=== PATIENT | female | born 1990 | race Caucasian/White ===

== ENCOUNTER 2018-02-05 22:45 | Inpatient (IN) | payer OTHER ==
[~2018-02-05] VITALS: Ht 160 cm; Wt 72.1 kg
[2018-02-06 00:40] VITALS: BP 114/72
[2018-02-06] MEDS ORDERED: AMPICILLIN 2,000 MG in NACL 0.9% MINI-BAG PLUS 100 ML IV SCH (01:55)
[2018-02-06] MEDS ORDERED: PROMETHAZINE 25 MG/ML VIAL IVP PRN (01:55)
[2018-02-06] MEDS ORDERED: NALBUPHINE 10 MG/ML AMP IVP PRN (01:55)
[2018-02-06] MEDS ORDERED: OXYTOCIN 20 UNITS in LACTATED RINGERS 1,000 ML IV SCH (01:55)
[2018-02-06] MEDS ORDERED: OXYTOCIN 10 UNITS/ML VIAL IM SCH (01:55)
[2018-02-06] MEDS ORDERED: MISOPROSTOL 25 MCG TAB VG PRN (01:55)
[2018-02-06] MEDS ORDERED: LACTATED RINGERS 500 ML IV ONE (01:55)
[2018-02-06 02:15] LABS: APPEARANCE,URINE CLEAR (CLEAR); BILIRUBIN,URINE NEGATIVE (NEGATIVE); BLOOD, URINE NEGATIVE (NEGATIVE); COLOR,URINE YELLOW (YELLOW); LEUKOCYTE ESTERASE ,URINE NEGATIVE (NEGATIVE); NITRITE, URINE NEGATIVE (NEGATIVE); PH,URINE 7.5 (5.0-9.0); UGLUCOSE NEGATIVE (NEGATIVE)
[2018-02-06] MEDS ORDERED: AMPICILLIN 2,000 MG VIAL ONE (02:24)
[2018-02-06] MEDS: LACTATED RINGERS 1,000 ML IV SCH ×3 (02:29→14:21)
[2018-02-06 03:26] LABS: BASOPHILS % (AUTO) 0.1 % (0.0-2.0); EOSINOPHILS % (AUTO) 0.3 % (0.0-4.0); HEMATOCRIT 29.9 % (36-48); HEMOGLOBIN 9.6 g/dL (12.0-16.0); LYMPHOCYTES # (AUTO) 1.9 K/uL (2.5-16.5); LYMPHOCYTES % (AUTO) 22.8 % (20.5-51.1); MEAN CORPUSCULAR HEMOGLOBIN 29 pg (27-31); MEAN CORPUSCULAR HGB CONC 32 g/dL (33-37); MEAN CORPUSCULAR VOLUME 89.8 fL (80-94); MONOCYTES # (AUTO) 0.7 K/uL (0.8-1.0); NEUTROPHILS # (AUTO) 5.6 K/uL (1.8-7.7); NEUTROPHILS % (AUTO) 67.8 % (42.2-75.2); PLATELET COUNT (AUTO) 228 K/uL (140-450); RED BLOOD CELL COUNT(AUTO) 3.33 MIL/uL (4.20-5.40); RED CELL DISTRIBUTION WIDTH 15.5 % (11.6-13.7); WHITE BLOOD COUNT (AUTO) 8.2 K/uL (4.8-10.8)
[2018-02-06] MEDS ORDERED: AMPICILLIN 1,000 MG in NACL 0.9% MINI-BAG PLUS 50 ML IV SCH (04:00)
[2018-02-06] MEDS ORDERED: AMPICILLIN 1,000 MG VIAL ONE (06:09)
[2018-02-06] MEDS ORDERED: oxyCODONE/APAP 5/325 MG 1 TAB TAB PO PRN (06:10)
[2018-02-06] MEDS ORDERED: TEMAZEPAM 15 MG CAP PO PRN (06:10)
[2018-02-06] MEDS ORDERED: METHYLERGONOVINE 0.2 MG/ML AMP IM PRN (06:10)
[2018-02-06] MEDS ORDERED: OXYTOCIN 10 UNITS/ML VIAL IM PRN (06:10)
[2018-02-06] MEDS ORDERED: BENZOCAINE/MENTHOL 20%-0.5% 60 GM CAN TP PRN (06:10)
[2018-02-06] MEDS ORDERED: IBUPROFEN 800 MG TAB PO PRN (06:10)
[2018-02-06] MEDS ORDERED: MEASLES, MUMPS, AND RUBELLA 1 VIAL SQVAC PRN (06:10)
[2018-02-06] MEDS ORDERED: OXYTOCIN 20 UNITS/LR PREMIX 1,000 ML IV ONE (06:23)
[2018-02-06] MEDS ORDERED: FERR-252 PO (07:05)
[2018-02-06] MEDS ORDERED: PREN-546 PO (07:05)
[2018-02-06] MEDS ORDERED: MISOPROSTOL 25 MCG TAB ONE (08:52)
--- NOTE | 2018-02-06 10:32 | NUR ---
PATIENT HAS BEEN SCREENED AND CATEGORIZED LOW NUTRITION RISK. PATIENT WILL BE SEEN WITHIN 7 DAYS OF ADMISSION. 02/12/[address]
[2018-02-06] MEDS ORDERED: PROMETHAZINE 25 MG/ML VIAL ONE (11:59)
[2018-02-06] MEDS ORDERED: NALBUPHINE 10 MG/ML AMP ONE (11:59)
[2018-02-06] MEDS ORDERED: ROPIVACAINE 0.2%/NS PREMIX 250 ML EPI ONE ×2 (13:42→14:10)
[2018-02-06] MEDS ORDERED: OXYTOCIN 10 UNITS/ML VIAL ONE (17:35)
[2018-02-06] MEDS ORDERED: DOCUSATE SOD/SENNA 50/8.6 MG 1 TAB PO SCH ×2 (21:00→22:00)
[2018-02-07] MEDS: HYDROcodone/APAP 5/325 MG 1 TAB TAB PO PRN ×2 (00:26→09:06)
[2018-02-07 06:58] LABS: HEMATOCRIT 29.3 % (36-48); HEMOGLOBIN 9.6 g/dL (12.0-16.0)
[2018-02-07] MEDS ORDERED: DOCUSATE SOD/SENNA 50/8.6 MG 1 TAB PO SCH (21:00)
[2018-02-08] MEDS ORDERED: IBUP-2213 PO (10:40)
== END 2018-02-08 13:50 | disposition home or self-care (01) | DRG 560 ==
LOC: MLD 22:45 → MFCC 02-06 21:15
PROVIDERS: ADMIT Obstetrics & Gynecology; ATTEND Obstetrics & Gynecology
PROC: 10D07Z8 Extraction of Products of Conception, Other, Via Natural or Artificial Opening (ICD-10-PCS; principal; 2018-02-06)
PROC: 00HU33Z Insertion of Infusion Device into Spinal Canal, Percutaneous Approach (ICD-10-PCS; 2018-02-06)
PROC: 3E0R3BZ Introduction of Anesthetic Agent into Spinal Canal, Percutaneous Approach (ICD-10-PCS; 2018-02-06)
PROC: 10907ZC Drainage of Amniotic Fluid, Therapeutic from Products of Conception, Via Natural or Artificial Opening (ICD-10-PCS; 2018-02-06)
PROC: 3E0234Z Introduction of Serum, Toxoid and Vaccine into Muscle, Percutaneous Approach (ICD-10-PCS; 2018-02-06)
DX: O80 Encounter for full-term uncomplicated delivery (principal); Z23 Encounter for immunization; Z37.0 Single live birth; Z3A.39 39 weeks gestation of pregnancy
CPT/HCPCS: 36415; 51702; 59409; 81003; 85018; 85025; 86592; 86886; 86900; 86901; 87653-90; 90715; J0290; J2300; J2550; J2590; J2795; J7120